=== PATIENT | male | born 1965 | race Asian ===

== ENCOUNTER 2018-10-12 20:38 | Emergency (ER) | payer BC ==
[~2018-10-12] VITALS: Ht 162.6 cm; Wt 73.9 kg
[2018-10-12 20:51] VITALS: BP_SYST 162
[2018-10-12] MEDS ORDERED: HYDROcodone/ACETAMIN 5-325 MG TAB (NORCO/ VICODIN) PO ONE (21:45)
[2018-10-12 22:35] VITALS: BP_SYST 156
== END 2018-10-12 22:35 | disposition home or self-care (01) ==
LOC: SED 20:38
DX: S22.32XA Fracture of one rib, left side, initial encounter for closed fracture (principal); S40.812A Abrasion of left upper arm, initial encounter; R03.0 Elevated blood-pressure reading, without diagnosis of hypertension; W05.1XXA Fall from non-moving nonmotorized scooter, initial encounter; Y93.89 Activity, other specified; Y92.89 Other specified places as the place of occurrence of the external cause; Y99.8 Other external cause status
CPT/HCPCS: 71045; 71100; 93005; 99283